=== PATIENT | female | born 1980 | race Caucasian/White ===

== ENCOUNTER 2023-01-08 10:59 | Emergency (ER) | payer OTHER ==
[~2023-01-08] VITALS: Ht 172.7 cm; Wt 120.0 kg
[2023-01-08 11:06] VITALS: BP 134/85
[2023-01-08] MEDS ORDERED: IBUP-1986 PO (12:33)
== END 2023-01-08 12:46 | disposition home or self-care (01) ==
LOC: ER 10:59
DX: M79.651 Pain in right thigh (principal); M79.652 Pain in left thigh; M25.562 Pain in left knee; M25.561 Pain in right knee; M25.572 Pain in left ankle and joints of left foot; Z88.1 Allergy status to other antibiotic agents; Z88.0 Allergy status to penicillin; Z79.899 Other long term (current) drug therapy; W01.0XXA Fall on same level from slipping, tripping and stumbling without subsequent striking against object, initial encounter; Y93.89 Activity, other specified; Y92.89 Other specified places as the place of occurrence of the external cause; Y99.8 Other external cause status
CPT/HCPCS: 73564; 73610; 73630; 99284

== ENCOUNTER → 2024-03-12 | Outpatient (CLI) | payer MEDICAID ==
[~2024-03-12] MED LIST: IBUP-1986 PO
== END | disposition home or self-care (01) ==
LOC: RAD 11:00
PROVIDERS: ATTEND Physician Assistant
DX: R10.2 Pelvic and perineal pain (principal)
CPT/HCPCS: 76856; 93976